=== PATIENT | male | born 1960 | race Caucasian/White ===

== ENCOUNTER 2020-10-26 05:46 | Observation (INO) | payer BC ==
[2020-10-18 11:39] LABS: BASOPHILS # (AUTO) 0.1 X10'3 (0-0.2); EOSINOPHILS # (AUTO) 0.1 X10'3 (0-0.9); EOSINOPHILS % (AUTO) 1.5 % (0-6); LYMPHOCYTES # (AUTO) 2.3 X10'3 (1.1-4.8); LYMPHOCYTES % (AUTO) 34.7 % (21-51); MEAN CORPUSCULAR HGB CONC 34.5 g/dL (33.0-36.5); MEAN CORPUSCULAR VOLUME 92.9 FL (78-98); MEAN PLATELET VOLUME 7.4 FL (7.4-10.4); MONOCYTES # (AUTO) 0.5 X10'3 (0-0.9); MONOCYTES % (AUTO) 8.2 % (2-12); NEUTROPHILS # (AUTO) 3.6 X10'3 (1.8-7.7); NEUTROPHILS % (AUTO) 54.6 % (42-75); PRE OP HEMATOCRIT 47.8 % (42.0-52.0); PRE OP HEMOGLOBIN 16.5 g/dL (14.0-17.9); PRE OP PLATELET COUNT 217 X10'3 (140-440); RED BLOOD COUNT 5.15 X10'6 (4.70-6.10); RED CELL DISTRIBUTION WIDTH 13.2 % (11.5-14.5)
[2020-10-18 11:51] LABS: PRE OP PROTIME 10.8 SECONDS (9.0-12.0)
[2020-10-18 11:53] LABS: ALBUMIN 4.1 G/DL (3.4-5.0); ALBUMIN/GLOBULIN RATIO 1.2 (1.1-1.5); ALKALINE PHOSPHATASE 61 IU/L (46-116); BLOOD UREA NITROGEN 12 MG/DL (7-18); CALCIUM 9.8 MG/DL (8.5-10.1); CHLORIDE 104 MMOL/L (99-107); CREATININE 0.86 MG/DL (0.60-1.10); PRE OP ALT 30 U/L (30-65); PRE OP ANION GAP 5 (8-16); PRE OP AST 19 U/L (10-37); PRE OP BILIRUB, TOTAL 0.4 MG/DL (0.0-1.0); PRE OP GLUCOSE 98 MG/DL (70-104); PRE OP POTASSIUM 3.8 MMOL/L (3.4-5.1); PRE OP SODIUM 142 MMOL/L (135-145); TOTAL CARBON DIOXIDE 32.7 MMOL/L (24-32); TOTAL PROTEIN 7.5 G/DL (6.4-8.2); eGFR > 90 ML/MIN
[2020-10-25 10:45] VITALS: BP 125/77
[~2020-10-26] VITALS: Ht 172.7 cm; Wt 82.6 kg
[2020-10-26] VITALS (17 sets, daily range): BP systolic 113–140; BP diastolic 67–87
[~2020-10-26 05:46] MED LIST: AMLO2.5T2 PO; CYAN500T46 PO; ERGO400C PO; HYDR12.55 PO; ceFOXitin 2GM-NS 100mL ADDvant 100 ML IV ONE; famotidine 20mg tablet PO ONE; metroNIDAZOLE-Flagyl 500mg/NS 100ML IVPB IV ONE; ringers solution, lacted 1,000 ML IV SCH
[2020-10-26] MEDS ORDERED: metroNIDAZOLE-Flagyl 500mg/NS 100 ML IV ONE (06:55)
[2020-10-26] MEDS ORDERED: LIDOcaine 1% W/epiNEPHrine 1:100,000 20ml vial ONE (06:56)
[2020-10-26] MEDS ORDERED: mineral oil 10ml sterile, topical TP ONE (06:56)
[2020-10-26] MEDS ORDERED: BUPIVAcaine/PF 2.5 mg/ml (0.25%) 30ml vial ONE (06:57)
[2020-10-26] MEDS ORDERED: midazolam 1 mg/ML 2ml injection ONE (07:13)
[2020-10-26] MEDS ORDERED: fentaNYL /PF 50mcg/ml 5ml ampule ONE (07:14)
[2020-10-26] MEDS ORDERED: LIDOcaine 2% (20mg/ml) 5ml vial ONE (07:16)
[2020-10-26] MEDS ORDERED: propofol inj 20 ML IV ONE (07:16)
[2020-10-26] MEDS ORDERED: rocuronium 10mg/ml inj IV ONE ×2 (07:16→07:34)
[2020-10-26] MEDS ORDERED: morphine 4 MG/ML inj SYRINge IV PRN (07:25)
[2020-10-26] MEDS ORDERED: ringers solution, lacted 1,000 ML IV SCH (07:25)
[2020-10-26] MEDS ORDERED: ondansetron/PF 4mg/2ml inj IV PRN ×2 (07:25→09:55)
[2020-10-26] MEDS ORDERED: proCHLORperazine 10 MG/2 ml inj IV PRN (07:25)
[2020-10-26] MEDS ORDERED: morphine 2 MG/ML inj. syringe IV PRN (07:25)
[2020-10-26] MEDS ORDERED: meperidine/PF 25mg/ml syringe IV PRN ×3 (07:25)
[2020-10-26] MEDS ORDERED: sevoflurane 250ml liquid IH ONE (07:34)
[2020-10-26] MEDS ORDERED: neostigmine methylsulfate 1 MG/ML 10ml vial ONE (09:10)
[2020-10-26] MEDS ORDERED: glycopyrrolate 0.2mg/ml inj ONE (09:10)
[2020-10-26] MEDS ORDERED: ondansetron/PF 4mg/2ml inj ONE (09:10)
[2020-10-26] MEDS ORDERED: ePHEDrine 50MG/ML INJ. ONE (09:10)
[2020-10-26] MEDS ORDERED: dexamethasone sod phosphate 4mg/ml inj. ONE (09:10)
--- NOTE | 2020-10-26 09:23 | NUR ---
Received from OR via [facility], accompanied by Anesthesiologist DR RUFFIN and report given by Anesthesiologist. PT DROWSY, NO S/S OF DISTRESS/DISCOMFORT. RECTUM W/GAUZE AND FOAM TAPE COVERING. Addendum: 10/26/20 at 0985 by Zayra Hawkins RN Amended: Links added.
[2020-10-26] MEDS ORDERED: acetaminophen 1,000mg/100ml IV 100 ML IV ONE (09:40)
--- NOTE | 2020-10-26 10:25 | NUR ---
Report received from LACTATION NURSEZayra
--- NOTE | 2020-10-26 10:43 | NUR ---
Report called to receiving nurse. Transferred via BED, 1 BAG OF Belongings SENT W/PT TO ROOM 350B. BLL, CALL LIGHT GIVEN, SIDE RAILS UP X 2, RN AT BEDSIDE TO RECEIVE PT. Special Issues communicated to receiving nurse. YES. Addendum: 10/26/20 at 1102 by Zayra Hawkins RN Amended: Links added.
[2020-10-26] MEDS ORDERED: CHOL400T32 PO (11:15)
[2020-10-26] MEDS ORDERED: ketorolac tromethamine 15mg/ml inj. IV SCH (14:00)
[2020-10-26] MEDS ORDERED: psyllium seed packet PO (14:12)
[2020-10-26] MEDS ORDERED: polyethylene glycol 3350 pkt PO (14:12)
[2020-10-26] MEDS ORDERED: DOCU100C40 PO (14:12)
--- NOTE | 2020-10-26 15:40 | NUR ---
DC inst provided to pt & pt's . IV DC'd, tip intact. All belongings sent w/pt. Pt ambulated to vehicle.
[2020-10-26] MEDS ORDERED: ceFOXitin 1 GM/D5W 50mL IVPB 50 ML IV SCH (16:00)
[2020-10-26] MEDS ORDERED: polyethylene glycol 3350 17gm powd pack PO SCH (20:00)
[2020-10-26] MEDS ORDERED: docusate sod 100mg capsule PO SCH (20:00)
[2020-10-26] MEDS ORDERED: psyllium seed 3.4 gm packet PO SCH (21:00)
[2020-10-27] MEDS ORDERED: HYDROchlorothiazide 12.5mg capsule PO SCH (08:00)
[2020-10-27] MEDS ORDERED: cholecalciferol (vitamin D3) 400 unit (10mcg) tablet PO SCH (08:00)
[2020-10-27] MEDS ORDERED: cyanocobalamin 500mcg tablet PO SCH (08:00)
[2020-10-27] MEDS ORDERED: amLODIPine 5mg tablet PO SCH (08:00)
== END 2020-10-26 15:41 | disposition home or self-care (01) ==
LOC: PAS 05:46 → SUR 3N 09:51
PROVIDERS: ADMIT Colon & Rectal Surgery; ATTEND Colon & Rectal Surgery
DX: C20 Malignant neoplasm of rectum (principal); K62.1 Rectal polyp; R94.31 Abnormal electrocardiogram [ECG] [EKG]
CPT/HCPCS: 36415; 45385; 80053; 82948; 85025; 85610; 85730; 93005; 96361; 96365; 96375; G0378; J0131; J0694; J1100; J1885; J2001; J2250; J2405; J2704; J2710; J3010; J3490; J7120; S2900; A4402; A4618; A6449; A7000